=== PATIENT | male | born 1975 | race Two or more races ===

== ENCOUNTER 2019-06-26 08:07 | Outpatient (CLI) | payer OTHER | END 2019-06-26 08:21 | disposition home or self-care (01) | LOC: MRI 08:07 | DX: M25.561 Pain in right knee (principal) | CPT/HCPCS: 73721 ==

== ENCOUNTER 2020-01-22 09:57 | Outpatient (CLI) | payer OTHER | END 2020-01-22 10:06 | disposition home or self-care (01) | LOC: RAD 09:57 → MAMO-SONO 10:15 | PROVIDERS: ATTEND Internal Medicine Cardiovascular Disease | DX: M25.561 Pain in right knee (principal); E04.1 Nontoxic single thyroid nodule ==